=== PATIENT | male | born 1975 | race Caucasian/White ===

== ENCOUNTER 2023-02-20 06:55 | Day surgery (SDC) | payer OTHER ==
[~2023-02-20] VITALS: Ht 177.8 cm; Wt 112.9 kg
[2023-02-20] MEDS ORDERED: LIDOCAINE 2% 1000 MG/50 ML VIAL INJ ONE (07:12)
[2023-02-20] MEDS ORDERED: MEPERIDINE 25 MG/ML SYR IM PRN (08:30)
[2023-02-20] MEDS ORDERED: MORPHINE SULFATE 4 MG/ML SYR ONE (08:32)
[2023-02-21] MEDS ORDERED: MORPHINE SULFATE 4 MG/ML SYR IVP ONE (08:45)
== END 2023-02-20 10:06 | disposition home or self-care (01) ==
LOC: MDS 06:55 → MMU 07:06 → MDS 10:06
PROVIDERS: ATTEND Internal Medicine Gastroenterology
DX: K75.81 Nonalcoholic steatohepatitis (NASH) (principal); F17.210 Nicotine dependence, cigarettes, uncomplicated; E66.9 Obesity, unspecified; Z68.35 Body mass index [BMI] 35.0-35.9, adult
CPT/HCPCS: 47000; 76942; J2001; J2270; Q0092